=== PATIENT | male | born 1935 | race Caucasian/White ===

== ENCOUNTER 2016-11-01 17:49 | Emergency (ER) | payer MEDICARE, OTHER ==
[2016-11-01 17:55] VITALS: BP 165/97; PULSE 99; RESP 18; TEMP 97.2
[2016-11-01] MEDS ORDERED: predniSONE 50 MG TAB PO STA (18:23)
--- NOTE | 2016-11-01 18:29 | ED ---
General Adult HPI - General Chief complaint: Extremity Problem,Nontraumatic Stated complaint: LEFT HAND SWELLING Time Seen by Provider: 11/01/16 18:06 Source: patient, RN notes reviewed Mode of arrival: ambulatory Limitations: no limitations - History of Present Illness Initial comments: Patient 81-year-old male with no significant past history, who presents emergency room today with chief complaint of swelling to the left hand. He does admit that he started noticed a cyst 2 days ago. He does admit to some tenderness pain to the left wrist the distal radius. Patient denies any other complaints. Denies any injury or trauma. Doesn't that he had similar symptoms 2 years ago was seen here in the emergency room placed on steroids for possible ALLERGIC reaction. States unsure if symptoms continue possible bug bite. Denies any other complaints or symptoms at this time. Patient denies any recent fever, chills, shortness of breath, chest pain, back pain, abdominal pain, nausea or vomiting, numbness or tingling, dysuria or hematuria, constipation or diarrhea, headaches or visual changes, or any other complaints. - Related Data Home Medications Medication Instructions Recorded Confirmed Aspirin EC [Ecotrin Low Dose] 81 mg PO DAILY 11/01/16 11/01/16 Multivitamins, Thera [Multivitamin 1 tab PO DAILY 11/01/16 11/01/16 (formulary)] Previous Rx's Medication Instructions Recorded predniSONE 20 mg PO DIRECTED #11 tab 11/01/16 Allergies Allergy/AdvReac Type Severity Reaction Status Date / Time No Known Allergies Allergy Verified 11/01/16 18:13 Review of Systems ROS Statement: Those systems with pertinent positive or pertinent negative responses have been documented in the HPI. ROS Other: All systems not noted in ROS Statement are negative. 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 Eye: Pupils are equal, round and reactive to light, extra-ocular movements are intact. No nystagmus. There is normal conjunctiva bilaterally. No signs of icterus. Ears, nose, mouth and throat: There are moist mucous membranes and no oral lesions. Neck: The neck is supple, there is no tenderness or JVD. Cardiovascular: There is a regular rate and rhythm. No murmur, rub or gallop is appreciated. Respiratory: Lungs are clear to auscultation, respirations are non-labored, breath sounds are equal. No wheezes, stridor, rales, or rhonchi. Musculoskeletal: mild swelling to the left hand over the first and second and third metacarpals. Mild tenderness over the distal radius. Shows good range of motion. Pain reproduced with flexion and extension of the left wrist. Strength 5/5. Sensation intact. Pulses equal bilaterally 2+. Neurological: A&O x 3. CN II-XII intact, There are no obvious motor or sensory deficits. Coordination appears grossly intact. Speech is normal. Skin: Skin is warm and dry and no rashes or lesions are noted. Psychiatric: Cooperative, appropriate mood & affect, normal judgment. Limitations: no limitations Course Vital Signs 11/01/16 17:53 Temperature 97.2 F L Pulse Rate 99 Respiratory 18 Rate Blood Pressure 165/97 O2 Sat by Pulse 98 Oximetry Medical Decision Making - Medical Decision Making patient admits this is same symptoms that he experienced 2 years ago. He states medication did help. Chart from previous visit was reviewed. Patient was placed on steroids at that time. Given dose of steroids to emergency room for symptoms. Symptoms of ALLERGIC reaction versus gout were discussed with patient. Patient advised to elevate the area. Advised to use ibuprofen for pain. Please use Benadryl 1-2 tabs every 6 hours. Advised follow family doctor return here to the emergency room if symptoms increase or worsen or for any other concerns. Patient and at bedside are agreeable with this plan. Disposition Clinical Impression: Hand swelling Disposition: HOME SELF-CARE Condition: Good Instructions: Gout (ED) Additional Instructions: Please use medication as discussed. Please follow-up with family doctor in the next 2 days of symptoms have not improved. Please return to emergency room if the symptoms increase or worsen or for any other concerns. Prescriptions: predniSONE 20 mg PO DIRECTED #11 tab Referrals: None,Stated [Primary Care Provider] - 1-2 days Time of Disposition: 18:27
== END 2016-11-01 18:45 | disposition home or self-care (01) ==
LOC: EC 17:49
DX: M79.89 Other specified soft tissue disorders (principal); M25.532 Pain in left wrist; Z87.891 Personal history of nicotine dependence; Z79.82 Long term (current) use of aspirin; Z79.899 Other long term (current) drug therapy; Z89.021 Acquired absence of right finger(s)
CPT/HCPCS: 99283; J7512

== ENCOUNTER 2018-09-07 16:15 | Emergency (ER) | payer MEDICARE, OTHER ==
[2018-09-07] MEDS ORDERED: MORPHINE SULFATE 2 MG/ML SYRINGE IVP ONE (17:09)
[2018-09-07] MEDS ORDERED: methylPREDNISolone SOD SUCCI 125 MG/2 ML VIAL IV STA (17:10)
[2018-09-07] MEDS ORDERED: SODIUM CHLORIDE 0.9% 1,000 ML IV SCH (17:15)
--- NOTE | 2018-09-07 17:37 | ED ---
General Adult HPI - General Chief complaint: Extremity Injury, Lower Stated complaint: Groin and leg pain Time Seen by Provider: 09/07/18 16:49 Source: patient, RN notes reviewed, old records reviewed Mode of arrival: ambulatory Limitations: no limitations - History of Present Illness Initial comments: Patient is an 83-year-old male presents emergency department today with complaints of lower back pain radiating double right leg. He states pain was o ccasionally shoot from lying to leg. Patient states that he has only urine. He reports he doesn't go to the doctor often. He denies any chest pain or shortness breath. Denies any recent falls or trauma. He states he did fall at the end of July with his current back from [place]. - Related Data Home Medications Medication Instructions Recorded Confirmed Aspirin EC [Ecotrin Low Dose] 81 mg PO DAILY 11/01/16 11/01/16 Multivitamins, Thera [Multivitamin 1 tab PO DAILY 11/01/16 11/01/16 (formulary)] Previous Rx's Medication Instructions Recorded predniSONE 20 mg PO DIRECTED #11 tab 11/01/16 Cyclobenzaprine [Flexeril] 10 mg PO TID #15 tab 09/07/18 Ibuprofen 600 mg PO TID #30 tablet 09/07/18 methylPREDNISolone Dose Pack 4 mg PO DIRECTED #21 package 09/07/18 [Medrol Dose Pack] Allergies Allergy/AdvReac Type Severity Reaction Status Date / Time No Known Allergies Allergy Verified 09/07/18 16:26 Review of Systems ROS Statement: Those systems with pertinent positive or pertinent negative responses have been documented in the HPI. ROS Other: All systems not noted in ROS Statement are negative. 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 Limitations: no limitations General appearance: alert, in no apparent distress Head exam: Present: atraumatic, normocephalic, normal inspection Eye exam: Present: normal appearance, PERRL, EOMI. Absent: scleral icterus, conjunctival injection, periorbital swelling ENT exam: Present: normal exam, mucous membranes moist Neck exam: Present: normal inspection. Absent: tenderness, meningismus, lymphadenopathy Respiratory exam: Present: normal lung sounds bilaterally. Absent: respiratory distress, wheezes, rales, rhonchi, stridor Cardiovascular Exam: Present: regular rate, normal rhythm, normal heart sounds. Absent: systolic murmur, diastolic murmur, rubs, gallop, clicks GI/Abdominal exam: Present: soft Extremities exam: Present: normal inspection, full ROM, normal capillary refill. Absent: tenderness, pedal edema, joint swelling, calf tenderness Back exam: Present: normal inspection, vertebral tenderness Neurological exam: Present: alert, oriented X3, CN II-XII intact Psychiatric exam: Present: normal affect Skin exam: Present: warm, dry, intact, normal color. Absent: rash Course Vital Signs 09/07/18 09/07/18 09/07/18 16:23 18:11 18:30 Temperature 98.1 F Pulse Rate 85 Respiratory 18 Rate Blood Pressure 151/94 150/76 108/79 O2 Sat by Pulse 98 96 96 Oximetry 09/07/18 19:00 Temperature Pulse Rate Respiratory Rate Blood Pressure 115/78 O2 Sat by Pulse 97 Oximetry Medical Decision Making - Medical Decision Making 83-year-old male resents instruments today with complaints of lower back pain and groin pain starting on Wednesday. He denies any fall or trauma for the onset of pain. States the pain radiates down bilateral legs. He states that he has had a fall a few months ago but was able to ambulate without difficulty at that time. Patient reports is also been having foamy urine. He does not see Dr. Patient otherwise appears well. Urinalysis was completed and does show some evidence of hematuria. Kidney function is preserved. Patient has CT abdomen and pelvis shows evidence of left AWOL hernia but no evidence of obstructing stone. There is no evidence of acute bone or joint process of the lumbar spine noted. Patient is reevaluated after 2 mg of morphine and states he is feeling better. Ambulating without difficulty. He states he feels stable be discharged home. The patient's pain seems to be muscular skeletal related and possibly a pinched nerve on results lumbar spine. Patient will have follow up with primary care doctor in regards to hematuria. I discussed the need to see urology as well for possible cystoscopy. - Lab Data Result diagrams: 09/07/18 17:45 09/07/18 17:45 Lab Results 09/07/18 09/07/18 09/07/18 Range/Units 17:45 17:45 19:34 WBC 13.2 H (3.8-10.6) k/uL RBC 4.40 (4.30-5.90) m/uL Hgb 13.1 (13.0-17.5) gm/dL Hct 39.9 (39.0-53.0) % MCV 90.5 (80.0-100.0) fL MCH 29.8 (25.0-35.0) pg MCHC 32.9 (31.0-37.0) g/dL RDW 13.5 (11.5-15.5) % Plt Count 362 (150-450) k/uL Neutrophils % 79 % Lymphocytes % 10 % Monocytes % 9 % Eosinophils % 1 % Basophils % 0 % Neutrophils # 10.4 H (1.3-7.7) k/uL Lymphocytes # 1.3 (1.0-4.8) k/uL Monocytes # 1.1 H (0-1.0) k/uL Eosinophils # 0.1 (0-0.7) k/uL Basophils # 0.1 (0-0.2) k/uL Sodium 133 L (137-145) mmol/L Potassium 4.4 (3.5-5.1) mmol/L Chloride 100 (98-107) mmol/L Carbon Dioxide 23 (22-30) mmol/L Anion Gap 10 mmol/L BUN 19 (9-20) mg/dL Creatinine 0.94 (0.66-1.25) mg/dL Est GFR (CKD-EPI)AfAm 86 (>60 ml/min/1.73 sqM) Est GFR (CKD-EPI)NonAf 75 (>60 ml/min/1.73 sqM) Glucose 112 H (74-99) mg/dL Calcium 9.1 (8.4-10.2) mg/dL Total Bilirubin 1.4 H (0.2-1.3) mg/dL AST 22 (17-59) U/L ALT 25 (21-72) U/L Alkaline Phosphatase 61 (38-126) U/L Total Protein 7.3 (6.3-8.2) g/dL Albumin 4.2 (3.5-5.0) g/dL Urine Color Yellow Urine Appearance Clear (Clear) Urine pH 6.0 (5.0-8.0) Ur Specific [place] 1.025 (1.001-1.035) Urine Protein 1+ H (Negative) Urine Glucose (UA) Negative (Negative) Urine Ketones 1+ H (Negative) Urine Blood Small H (Negative) Urine Nitrite Negative (Negative) Urine Bilirubin Negative (Negative) Urine Urobilinogen 6.0 (<2.0) mg/dL Ur Leukocyte Esterase Negative (Negative) Urine RBC 25 H (0-5) /hpf Ur Squamous Epith Cells <1 (0-4) /hpf Hyaline Casts 6 H (0-2) /lpf Urine Mucus Moderate H (None) /hpf - Radiology Data Radiology results: report reviewed CT of the pelvis shows evidence of left inguinal hernias discussed. No active bone or joint process. Disposition Clinical Impression: Leg muscle spasm, Hematuria Disposition: HOME SELF-CARE Condition: Good Instructions (If sedation given, give patient instructions): Hematuria (ED), Lumbar Radiculopathy (ED) Additional Instructions: Patient is to follow-up with PCP in orthopedic physician. Patient should follow-up with PCP for follow-up in regards to hematuria. Take the medication as prescribed and have strict return parameters if there is any alarming signs or symptoms. Prescriptions: Cyclobenzaprine [Flexeril] 10 mg PO TID #15 tab Ibuprofen 600 mg PO TID #30 tablet methylPREDNISolone Dose Pack [Medrol Dose Pack] 4 mg PO DIRECTED #21 package Is patient prescribed a controlled substance at d/c from ED?: No Referrals: None,Stated [Primary Care Provider] - 1-2 days Jeremy Gómez MD [STAFF PHYSICIAN] - 1-2 days Jazlyn Harper MD [STAFF PHYSICIAN] - 1-2 days Time of Disposition: 20:18
[2018-09-07 17:58] LABS: Basophils # (A) 0.1 k/uL (0-0.2); Basophils % (A) 0 %; Eosinophils # (A) 0.1 k/uL (0-0.7); Eosinophils % (A) 1 %; HCT 39.9 % (39.0-53.0); HGB 13.1 gm/dL (13.0-17.5); Lymphocytes # (A) 1.3 k/uL (1.0-4.8); Lymphocytes % (A) 10 %; MCH 29.8 pg (25.0-35.0); MCHC 32.9 g/dL (31.0-37.0); MCV 90.5 fL (80.0-100.0); Mean Platelet Volume 7.1; Monocytes # (A) 1.1 k/uL (0-1.0); Monocytes % (A) 9 %; Neutrophils # (A) 10.4 k/uL (1.3-7.7); Neutrophils % (A) 79 %; Platelet Count 362 k/uL (150-450); RDW 13.5 % (11.5-15.5); WBC 13.2 k/uL (3.8-10.6)
[2018-09-07 18:09] LABS: Albumin 4.2 g/dL (3.5-5.0); Calcium 9.1 mg/dL (8.4-10.2); Potassium 4.4 mmol/L (3.5-5.1); Total Bilirubin 1.4 mg/dL (0.2-1.3); Total Protein 7.3 g/dL (6.3-8.2)
--- NOTE | 2018-09-07 19:40 | CT ---
EXAMINATION TYPE: CT lumbar spine wo con DATE OF EXAM: 09/07/2018 7:05 PM COMPARISON: None HISTORY: low back pain CT DLP: 1014.2 mGycm Automated exposure control for dose reduction was used. FINDINGS: Unenhanced CT of the lumbar spine was performed. Bone and soft tissue window settings are submitted as well as coronal and sagittal reconstructions. There is no fracture or malalignment. No pars interarticularis defects. The height of the vertebral b odies are maintained. There is lumbar spine straightening, with loss of the normal lordotic curvature, and with multilevel advanced spondylosis. There is advanced spinal stenosis at L4-5, which is moderate degree at L3-4 and L5-S1. Mild spinal stenosis is seen at the L1-2 and L2-3 levels. No focal disc extrusion/protrusion. There are no focal skeletal lesions. No incidental paraspinal findings. IMPRESSION: NO ACUTE PROCESS.
--- NOTE | 2018-09-07 19:48 | CT ---
EXAMINATION TYPE: CT pelvis wo con DATE OF EXAM: 09/07/2018 COMPARISON: None HISTORY: groin and leg pain CT DLP: 290.1 mGycm Automated exposure control for dose reduction was used. 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 This loop of bowel and its accompanying mesocolon measure approximately 8 cm crab meat processor niocaudal by 3 cm AP by 4 cm transverse. The loop of bowel has unremarkable appearance as does its me socolon; thus incarcerated without evidence of strangulation. There is no fracture or malalignment. 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 IMPRESSION: 1. POSITIVE FOR LEFT INGUINAL HERNIA, DISCUSSED. 2. NO ACUTE BONE OR JOINT PROCESS.
[2018-09-07 20:02] LABS: Appearance,Urine Clear (Clear); Bilirubin,Urine Negative (Negative); Blood,Urine Small (Negative); Color,Urine Yellow; Glucose,Urine (UA) Negative (Negative); Hyaline Casts,Urine 6 /lpf (0-2); Ketones,Urine 1+ (Negative); Leukocyte Esterase,Urine Negative (Negative); Mucus,Urine Moderate /hpf; Nitrite,Urine Negative (Negative); Protein,Urine 1+ (Negative); RBC,Urine 25 /hpf (0-5); Specific Gravity,Urine 1.025 (1.001-1.035); Squamous Epithelial Cell,Urine <1 /hpf (0-4)
[2018-09-07] MEDS ORDERED: ACET/COD 300 MG/30 MG STARTER PACK 6 TAB BTL PO STA (20:21)
[2018-09-07 20:43] VITALS: BP 144/91; PULSE 96; RESP 16; TEMP 97.5
== END 2018-09-07 20:47 | disposition home or self-care (01) ==
LOC: EC 16:15
DX: M62.838 Other muscle spasm (principal); R31.9 Hematuria, unspecified; K40.90 Unilateral inguinal hernia, without obstruction or gangrene, not specified as recurrent; M54.5 Low back pain; Z79.82 Long term (current) use of aspirin; Z87.891 Personal history of nicotine dependence
CPT/HCPCS: 36415; 80053; 85025; 81001; 72192; 72131; 99284; 96374; 96375; 96361 ×3; J2930; J2270